=== PATIENT | male | born 1935 ===

== ENCOUNTER → 2018-01-08 18:45 | Outpatient (REF) | payer OTHER, SELFPAY | LOC: LAB 18:45 | PROVIDERS: Visit Provider Physician Assistant | DX: L01.01 Non-bullous impetigo (principal); L82.1 Other seborrheic keratosis; D18.01 Hemangioma of skin and subcutaneous tissue; L81.4 Other melanin hyperpigmentation; D22.72 Melanocytic nevi of left lower limb, including hip; L57.0 Actinic keratosis; X32.XXXA Exposure to sunlight, initial encounter | CPT/HCPCS: 87070; 87077; 87147; 87186; 87205 ==